=== PATIENT | male | born 1990 | race Caucasian/White ===

== ENCOUNTER 2017-01-26 20:46 | Emergency (ER) | payer OTHER ==
[2017-01-26 20:57] VITALS: BP 130/78; PULSE 82; RESP 18; TEMP 98
[2017-01-26] MEDS ORDERED: PROPARACAINE 0.5% OPHTH DROPS 15 ML BTL LEFT EYE STA (21:05)
--- NOTE | 2017-01-26 21:08 | ED ---
Eye Problem HPI - General Chief complaint: Eye Problems Stated complaint: Painful eye Time Seen by Provider: 01/26/17 21:03 Source: patient, RN notes reviewed Mode of arrival: ambulatory Limitations: no limitations - History of Present Illness Initial comments: 27-year-old male presents to the emergency Department chief complaint of left eye irritation. Patient states that he was opening superglue and since then he' s had some burning on and off to the eye. Patient states he contacted poison control and told to flush his eye and he states he continued to have the emergency room 3 thought that he should be seen. Patient denies any changes in vision any drainage from the eye. Patient states that she stated burning type sensation he was concerned. Patient states it is not currently having any other symptoms at this time.Patient denies any recent fever, chills, shortness of breath, chest pain, back pain, abdominal pain, nausea vomiting, numbness or tingling, dysuria or hematuria, constipation or diarrhea, headaches or visual changes, or any other current symptoms. - Related Data Previous Rx's Medication Instructions Recorded Erythromycin Ophth Oint [Romycin 1 applic LEFT EYE QID 3 Days 03/07/16 Ophth Oint] Allergies Allergy/AdvReac Type Severity Reaction Status Date / Time No Known Allergies Allergy Verified 01/26/17 20:57 Review of Systems ROS Statement: Those systems with pertinent positive or pertinent negative responses have been documented in the HPI. ROS Other: All systems not noted in ROS Statement are negative. Past Medical History Past Medical History: No Reported History History of Any Multi-Drug Resistant Organisms: None Reported Past Surgical History: Orthopedic Surgery Additional Past Surgical History / Comment(s): bilat ankle, Past Psychological History: No Psychological Hx Reported Smoking Status: Never smoker Past Alcohol Use History: Rare Past Drug Use History: None Reported General Exam Limitations: no limitations General appearance: alert, in no apparent distress Head exam: Present: atraumatic, normocephalic, normal inspection Eye exam: Present: normal appearance, PERRL, EOMI. Absent: scleral icterus, conjunctival injection, periorbital swelling ENT exam: Present: normal exam, mucous membranes moist Neck exam: Present: normal inspection. Absent: tenderness, meningismus, lymphadenopathy Respiratory exam: Present: normal lung sounds bilaterally. Absent: respiratory distress, wheezes, rales, rhonchi, stridor Cardiovascular Exam: Present: regular rate, normal rhythm, normal heart sounds. Absent: systolic murmur, diastolic murmur, rubs, gallop, clicks Neurological exam: Present: alert, oriented X3 Psychiatric exam: Present: normal affect, normal mood Skin exam: Present: warm, dry, intact, normal color. Absent: rash Course Vital Signs 01/26/17 20:55 Temperature 98.0 F Pulse Rate 82 Respiratory 18 Rate Blood Pressure 130/78 O2 Sat by Pulse 97 Oximetry - Reevaluation(s) Reevaluation #1: 01/26/17 21:39 patient's pain completely resolved with the proparacaine Medical Decision Making - Medical Decision Making 27-year-old male presents for left eye irritation.at this time patient underwent with flap examination does not show any corneal injury. We did give the patient dose of Bactrim and informed to follow-up with ophthalmology morning. We did discuss return parameters all patient's questions. He stated he understood and is in agreement plan. He will be discharged. Disposition Clinical Impression: Irritation of left eye Disposition: HOME SELF-CARE Condition: Stable Instructions: Eye Wash (Into the eye) Additional Instructions: Please use medication as discussed. Please follow up with family doctor if symptoms have not improved over the next two days. Please return to the emergency room if your symptoms increase or worsen or for any other concerns. Referrals: Cleveland Benavidez MD [Primary Care Provider] - 1-2 days Domingo Bean MD [STAFF PHYSICIAN] - 1-2 days Time of Disposition: 21:39
[2017-01-26] MEDS ORDERED: TOBRAMYCIN 0.3% OPHTH OINT 3.5 GM TUBE LEFT EYE STA (21:40)
== END 2017-01-26 21:57 | disposition home or self-care (01) ==
LOC: EC 20:46
DX: H57.8 Other specified disorders of eye and adnexa (principal)
CPT/HCPCS: 99283

== ENCOUNTER → 2017-02-03 | Outpatient (CLI) | payer OTHER ==
--- NOTE | 2017-02-03 11:16 | MR ---
EXAMINATION TYPE: MR lsluis wo con DATE OF EXAM: 02/03/2017 COMPARISON: NONE HISTORY: neck pain back pain TECHNIQUE: T1 and T2 axial and sagittal images of the lumbar spine are submitted. FINDINGS: There is no abnormal signal seen within the visualized spinal cord or paraspinal soft tissu es. At L1-2 there is hypertrophic change of the facets but no disc herniation or canal stenosis. No janet inal encroachment. At L2-3 there is no disc herniation or canal stenosis. No foraminal encroachment. At L3-4 there is mild disc desiccation and circumferential disc bulging. Hypertrophic change of the f acets. No Canal stenosis or foraminal encroachment. At L4-5 there is central broad-based disc herniation with moderate effacement of thecal sac and canal stenosis. Facet arthropathy and ligamentum flavum hypertrophy with mild bilateral foraminal encroach ment. At L5-S1 there is facet arthropathy. No Canal stenosis. Circumferential disc bulging with mild forami nal encroachment. IMPRESSION: 1. Degenerative disc disease L3-S1 with disc desiccation. 2. Central broad-based disc herniation L4-L5 with moderate effacement of thecal sac and canal stenosi s. Hypertrophic change of the facets and ligamentum flavum contribute to bilateral foraminal encroach ment. 3. Circumferential disc bulging L5-S1 with mild bilateral foraminal encroachment. EXAMINATION TYPE: MR lily wo con DATE OF EXAM: 02/03/2017 COMPARISON: NONE HISTORY: neck pain back pain TECHNIQUE: T1 sagittal and coronal, T2 sagittal, and gradient echo axial views of the cervical spine are submitted. FINDINGS: The cranial cervical junction is preserved. There is no abnormal signal seen within the sp inal cord or paraspinal soft tissues. At C2-3 there is no disc herniation or canal stenosis. No foraminal encroachment. At C3-4 there is there is no disc herniation or canal stenosis. Mild uncovertebral joint hypertrophy on the right. Very mild right-sided foraminal encroachment. At C4-5 there is no disc herniation or canal stenosis. No foraminal encroachment. At C5-6 there is disc herniation or canal stenosis. No foraminal encroachment. At C6-7 there is no disc herniation or canal stenosis. No foraminal encroachment. At C7-T1 there is no disc herniation or canal stenosis. No foraminal encroachment. IMPRESSION: 1. Mild uncovertebral joint hypertrophy C3-C4 on the right with very mild right-sided foraminal encr oachment but no evidence of disc herniation or canal stenosis at any of the visualized levels.
== END | disposition home or self-care (01) ==
LOC: RADMRIMAIN 09:44
PROVIDERS: ATTEND Nurse Practitioner Acute Care
DX: M48.06 Spinal stenosis, lumbar region (principal); M51.37 Other intervertebral disc degeneration, lumbosacral region; M51.27 Other intervertebral disc displacement, lumbosacral region; M54.2 Cervicalgia
CPT/HCPCS: 72141; 72148

== ENCOUNTER 2018-01-13 14:17 | Emergency (ER) | payer OTHER ==
[2018-01-13 14:45] VITALS: RESP 20
[2018-01-13] MEDS ORDERED: PROPARACAINE 0.5% OPHTH DROPS 15 ML BTL RIGHT EYE STA (14:52)
[2018-01-13] MEDS ORDERED: ERYTHROMYCIN 5 MG/GM OPHTH OINT 3.5 GM TUBE RIGHT EYE STA (15:43)
--- NOTE | 2018-01-13 15:43 | ED ---
Eye Problem HPI - General Chief complaint: Eye Problems Stated complaint: METAL SHAVING IN RT EYE NOT IHS Time Seen by Provider: 01/13/18 14:52 Source: patient, RN notes reviewed Mode of arrival: ambulatory Limitations: no limitations - History of Present Illness Initial comments: This is a 27-year-old male who presents to the emergency department with chief complaint of right eye foreign body. Patient states that approximately 2 and half hours ago he was grinding metal. He states that a small shaving became lodged in his right eye. He states that he did flush out the right eye and still felt a foreign body sensation on his drive over to the emergency department. Patient states that currently he no longer has foreign body sensation or irritation. He states he just wanted to be cautious. Denies any vision changes, blurred vision or significant eye pain. Does admit to minimal tearing. Denies any concerns for foreign body in the left eye. Patient does not wear contacts. Denies recent illnesses or infections. Denies fevers or chills, chest pain or shortness breath, abdominal pain, nausea or vomiting, headache or dizziness. - Related Data Home Medications Medication Instructions Recorded Confirmed No Known Home Medications 01/13/18 01/13/18 Allergies Allergy/AdvReac Type Severity Reaction Status Date / Time No Known Allergies Allergy Verified 01/13/18 14:45 Review of Systems ROS Statement: Those systems with pertinent positive or pertinent negative responses have been documented in the HPI. ROS Other: All systems not noted in ROS Statement are negative. Past Medical History Past Medical History: No Reported History History of Any Multi-Drug Resistant Organisms: None Reported Past Surgical History: Orthopedic Surgery Additional Past Surgical History / Comment(s): bilat ankle, Past Psychological History: No Psychological Hx Reported Smoking Status: Never smoker Past Alcohol Use History: Rare Past Drug Use History: None Reported General Exam - General Exam Comments Initial Comments: General: Awake and alert, well-developed; in no apparent distress. HEENT: Head atraumatic, normocephalic. Pupils are equal, round and reactive to light. Extraocular movements intact. Bilateral conjunctiva are non-injected. No evidence of foreign body within the right eye. No evidence of foreign body under superior or inferior eyelids. No abrasions or ulcerations noted on fluorescein staining. Oropharynx moist without erythema or exudate. Neck: Supple. Normal ROM. Cardiovascular: Regular rate and rhythm. No murmurs, rubs or gallops. Chest symmetrical. Respiratory: Lungs clear to auscultation bilaterally. No wheezes, rales or rhonchi. Normal respiratory effort with no use of accessory muscles. Musculoskeletal: Normal ROM, no tenderness bilateral upper and lower extremities. Ambulating normally. Skin: [place], warm and dry without rashes or lesions. Neurological: Alert and oriented x3. CN II-XII grossly intact. Speech is fluent and answers are appropriate. No focal neuro deficits. Psychiatric: Normal mood and affect. No overt signs of depression or anxiety noted. Limitations: no limitations Course Vital Signs 01/13/18 14:43 Temperature 98.2 F Pulse Rate 72 Respiratory 20 Rate Blood Pressure 121/69 O2 Sat by Pulse 100 Oximetry Medical Decision Making - Medical Decision Making This is a 27-year-old male who presents to the emergency department with chief complaint of foreign body within the right eye. Patient thought that he got a small metal shaving into his right eye approximately 2-1/2 hours ago. He did flush it out. Currently, patient denies any foreign body sensation and irritation. Conjunctivae non-injected. No evidence of foreign body within the eye or under eyelids. No abrasions or ulcerations noted on fluorescein staining. Extraocular movements are intact and pupils are equal round and reactive to light. Patient will be started on erythromycin ointment for prevention of any infection if there is a minor abrasion that I am unable to visualize. Vital signs are stable and patient is in no acute distress. He will be discharged home at this time. All questions answered. Disposition Clinical Impression: Eye foreign body Disposition: HOME SELF-CARE Condition: Good Instructions: Eye Foreign Body (ED), Erythromycin (Into the eye) Additional Instructions: Please apply a half inch ribbon of erythromycin to the affected eye every 6 hours for the next 5 days. Please follow up with primary care provider within 1 -2 days. Return to emergency department if symptoms should worsen or any concerns arise. Is patient prescribed a controlled substance at d/c from ED?: No Referrals: Cleveland Benavidez MD [Primary Care Provider] - 1-2 days Time of Disposition: 15:38
[2018-01-13 15:50] VITALS: BP 128/70; PULSE 64; TEMP 98.5
== END 2018-01-13 16:09 | disposition home or self-care (01) ==
LOC: EC 14:17
DX: T15.91XA Foreign body on external eye, part unspecified, right eye, initial encounter (principal)
CPT/HCPCS: 99283

== ENCOUNTER → 2018-04-30 | Outpatient (CLI) | payer OTHER ==
--- NOTE | 2018-04-30 15:59 | XR ---
EXAMINATION TYPE: XR ankle limited bilateral DATE OF EXAM: 04/30/2018 CLINICAL HISTORY: Ankle pain TECHNIQUE: Frontal, and lateral of the bilateral ankle are obtained. COMPARISON: None. FINDINGS: There is no acute fracture/dislocation evident in the bilateral ankle. The ankle mortise appears within normal limits. The overlying soft tissue appears unremarkable. Prominent bony density extending of the posterior margin of the talus bilaterally may be congenital. IMPRESSION: 1. There is no acute fracture or dislocation in the bilateral ankle. 2. There is a prominent bony protuberance extending off the posterior margin of the talus. Likely is congenital rather than representing osteochondroma. Follow-up bone scan could BE obtained as clinical ly warranted.
== END | disposition home or self-care (01) ==
LOC: RADXRMAIN 14:44
PROVIDERS: ATTEND Pediatrics
DX: R93.7 Abnormal findings on diagnostic imaging of other parts of musculoskeletal system (principal)

== ENCOUNTER → 2020-03-14 | Outpatient (CLI) | payer OTHER ==
--- NOTE | 2020-03-15 09:42 | XR ---
EXAMINATION TYPE: XR lumbosacral spine min 4V DATE OF EXAM: 03/14/2020 CLINICAL HISTORY: Sciatica pain down right leg. M54.31 TECHNIQUE: Frontal, lateral, and oblique images of the lumbar spine are obtained. COMPARISON: None FINDINGS: There are 5 lumbar type vertebral bodies identified. The lumbar spine shows satisfactory alignment without evidence of acute fracture or dislocation. Vertebral body heights and disk space he ights are within normal limits. No evidence of spondylolysis or spondylolisthesis. Mild facet arthrop athy L5-S1. The overlying soft tissue appears unremarkable. IMPRESSION: 1. No acute fracture or dislocation is seen in the lumbar spine. 2. Mild facet arthropathy at L5-S1.
== END | disposition home or self-care (01) ==
LOC: RAD 18:06
PROVIDERS: ATTEND Physician Assistant
DX: M47.897 Other spondylosis, lumbosacral region (principal)
CPT/HCPCS: 72110

== ENCOUNTER 2020-03-26 08:19 | Emergency (ER) | payer OTHER ==
[2020-03-26 08:34] VITALS: RESP 18
[2020-03-26] MEDS ORDERED: KETOROLAC 15 MG/ML 1 ML VIAL IM STA (09:00)
[2020-03-26] MEDS ORDERED: traMADol 50 MG STARTER PACK 3 TAB BTL PO STA (09:01)
--- NOTE | 2020-03-26 09:05 | ED ---
Back Pain HPI - General Chief Complaint: Back Pain/Injury Stated Complaint: back & leg pain Time Seen by Provider: 03/26/20 08:36 Source: patient Limitations: no limitations - History of Present Illness Initial Comments: Patient is a 30-year-old male presenting to emergency Department with complaints of right-sided low back pain with some radiation into his right leg. Patient states he has seen his PCP for this and they did start him on Neurontin which has not seemed to help. Patient states he also has muscle relaxers at home that he takes at nighttime and has been trying Aleve as well. Patient states he also has a prescription for physical therapy which he did go to the first appointment but did not like the physical therapist so he is switching to another facility. Patient states the last 2 days the pain has increased so he came to the ER for evaluation. He denies any injuries or falls. He denies any fever or chills. He denies any set up her seizure or urinary incontinence. He denies any lower back surgeries. He has no further complaints at this time. Upon arrival to the ER, his vital signs are stable. - Related Data Previous Rx's Medication Instructions Recorded predniSONE [Deltasone] 20 mg PO BID 5 Days #10 tab 03/26/20 Allergies Allergy/AdvReac Type Severity Reaction Status Date / Time No Known Allergies Allergy Verified 03/26/20 08:34 Review of Systems ROS Statement: Those systems with pertinent positive or pertinent negative responses have been documented in the HPI. ROS Other: All systems not noted in ROS Statement are negative. Past Medical History Past Medical History: No Reported History History of Any Multi-Drug Resistant Organisms: None Reported Past Surgical History: Orthopedic Surgery Additional Past Surgical History / Comment(s): bilat ankle, Past Psychological History: No Psychological Hx Reported Smoking Status: Never smoker Past Alcohol Use History: Rare Past Drug Use History: None Reported General Exam - General Exam Comments Initial Comments: GENERAL: Patient is well-developed and well-nourished. Patient is nontoxic and in no acute distress. HEAD: Atraumatic, normocephalic. EYES: Pupils equal round and reactive to light, extraocular movements intact, sclera anicteric, conjunctiva are normal. Eyelids were unremarkable. ENT: TMs normal, nares patent, oropharynx clear without exudates. Moist mucous membranes. NECK: Normal range of motion, supple without lymphadenopathy or JVD. LUNGS: Unlabored respirations. Breath sounds clear to auscultation bilaterally and equal. No wheezes rales or rhonchi. HEART: Regular rate and rhythm without murmurs, rubs or gallops. ABDOMEN: Soft, nontender, normoactive bowel sounds. No guarding, no rebound. No masses appreciated. : Deferred MUSCULOSKELETAL: Patient has some mild pain with palpation of the right SI area, increased with straight leg raise. Patient has 5 out of 5 strength of lower extremities bilaterally, sensation is equal and bilateral. Patient has strong glue contraction. No pitting or edema. No clubbing or cyanosis. NEUROLOGICAL: Patient is alert and oriented x 3. Motor and sensory are also intact. Cranial nerves II through XII grossly intact. Symmetrical smile. Normal speech, normal gait. PSYCH: Normal mood, normal affect. SKIN: Warm, Dry, normal turgor, no rashes or lesions noted. Limitations: no limitations Course Vital Signs 03/26/20 03/26/20 08:30 09:18 Temperature 98.4 F 98 F Pulse Rate 68 69 Respiratory 18 18 Rate Blood Pressure 122/69 114/79 O2 Sat by Pulse 99 97 Oximetry Medical Decision Making - Medical Decision Making Patient is a 30-year-old male here for right-sided low back pain as well as some mild sciatica. His exam is unremarkable, no neural deficits. Patient is already taking Neurontin. I discussed with patient that we can give him Toradol today as well as started on a small dose of steroids for the inflammation. Patient is also requesting some sort of pain medication. I will give him a starter pack of tramadol. Patient is agreement with this plan of care. He will continue with his physical therapy and follow up with his PCP. Return parameters were discussed with the patient and he verbalized understanding. Case discussed with Dr. Bowles. Disposition Clinical Impression: Right-sided low back pain with right-sided sciatica Disposition: HOME SELF-CARE Condition: Stable Instructions (If sedation given, give patient instructions): Sciatica (ED) Additional Instructions: Please return to the Emergency Department if symptoms worsen or any other concerns. Take medication as prescribed. Continue with physical therapy as discussed. Use eye ice and/or heat on the area, gentle stretching. Follow-up with PCP. Prescriptions: predniSONE [Deltasone] 20 mg PO BID 5 Days #10 tab Is patient prescribed a controlled substance at d/c from ED?: No Referrals: Cleveland Benavidez MD [Primary Care Provider] - 1-2 days
[2020-03-26 09:20] VITALS: BP 114/79; PULSE 69; TEMP 98
== END 2020-03-26 09:18 | disposition home or self-care (01) ==
LOC: EC 08:19
DX: M54.41 Lumbago with sciatica, right side (principal); Z98.890 Other specified postprocedural states
CPT/HCPCS: 99283; 96372; J1885

== ENCOUNTER 2020-09-22 12:22 | Emergency (ER) | payer OTHER ==
[2020-09-22 12:26] VITALS: BP 117/67; PULSE 79; RESP 18; TEMP 97.4
[2020-09-22] MEDS ORDERED: KETOROLAC 15 MG/ML 1 ML VIAL IM STA (12:41)
--- NOTE | 2020-09-22 12:58 | ED ---
General Adult HPI - General Chief complaint: Back Pain/Injury Stated complaint: back pain Time Seen by Provider: 09/22/20 12:30 Source: patient, RN notes reviewed, old records reviewed Mode of arrival: ambulatory Limitations: no limitations - History of Present Illness Initial comments: 30-year-old male with chronic back pain presenting for evaluation of worsening pain. Patient has been seen by the neurology and spine center locally. He is currently on naproxen and Whick. He states he had an MRI about 6 months ago which showed some herniated disks. He states that he did have some numbness and tingling into his right leg which has improved over the past several months. He denies weakness. Patient denies any new trauma. Denies fever or chills. Denies any constitutional symptoms. No dysuria or bladder or bowel incontinence. - Related Data Previous Rx's Medication Instructions Recorded predniSONE [Deltasone] 20 mg PO BID 5 Days #10 tab 03/26/20 Ibuprofen [Motrin] 600 mg PO Q8HR PRN #24 tab 09/22/20 Allergies Allergy/AdvReac Type Severity Reaction Status Date / Time No Known Allergies Allergy Verified 09/22/20 12:25 Review of Systems ROS Statement: Those systems with pertinent positive or pertinent negative responses have been documented in the HPI. ROS Other: All systems not noted in ROS Statement are negative. Past Medical History Past Medical History: No Reported History Additional Past Medical History / Comment(s): herniated disc in lower back. History of Any Multi-Drug Resistant Organisms: None Reported Past Surgical History: Orthopedic Surgery Additional Past Surgical History / Comment(s): bilat ankle, Past Psychological History: No Psychological Hx Reported Smoking Status: Never smoker Past Alcohol Use History: Rare Past Drug Use History: None Reported General Exam Limitations: no limitations General appearance: alert, in no apparent distress Head exam: Present: atraumatic, normocephalic Eye exam: Present: normal appearance, PERRL ENT exam: Present: normal exam Neck exam: Present: normal inspection. Absent: tenderness, meningismus Respiratory exam: Present: normal lung sounds bilaterally. Absent: respiratory distress Cardiovascular Exam: Present: regular rate, normal rhythm GI/Abdominal exam: Present: soft. Absent: distended, tenderness, guarding Extremities exam: Present: normal inspection, full ROM, normal capillary refill. Absent: tenderness, pedal edema, joint swelling Back exam: Present: normal inspection, paraspinal tenderness Neurological exam: Present: alert, oriented X3, CN II-XII intact. Absent: motor sensory deficit Psychiatric exam: Present: normal affect, normal mood Skin exam: Present: warm, dry, intact. Absent: cyanosis, diaphoretic Course Vital Signs 09/22/20 12:23 Temperature 97.4 F L Pulse Rate 79 Respiratory 18 Rate Blood Pressure 117/67 O2 Sat by Pulse 97 Oximetry Medical Decision Making - Medical Decision Making 30-year-old with chronic low back pain, requesting Toradol shot for symptom control. No alarming features on history or physical exam. Patient has good follow-up as an outpatient. He will continue to follow with his primary care physician and the neurology Center. He will return with worsening or changing symptoms. Disposition Clinical Impression: Strain of lumbar region, Herniated lumbar intervertebral disc Disposition: HOME SELF-CARE Condition: Good Instructions (If sedation given, give patient instructions): Acute Low Back Pain (ED) Additional Instructions: Discontinue naproxen, start Motrin, follow with your low back specialist. Prescriptions: Ibuprofen [Motrin] 600 mg PO Q8HR PRN #24 tab PRN Reason: Pain Is patient prescribed a controlled substance at d/c from ED?: No Referrals: Cleveland Benavidez MD [Primary Care Provider] - 1-2 days Time of Disposition: 13:02
== END 2020-09-22 13:07 | disposition home or self-care (01) ==
LOC: EC 12:22
DX: M51.26 Other intervertebral disc displacement, lumbar region (principal); S39.012A Strain of muscle, fascia and tendon of lower back, initial encounter; X58.XXXA Exposure to other specified factors, initial encounter
CPT/HCPCS: 99283; 96372; J1885

== ENCOUNTER → 2020-11-08 | Outpatient (CLI) | payer OTHER ==
[2020-11-08 19:15] LABS: Basophils # (A) 0.02 X 10*3/uL (0.00-0.10); Basophils % (A) 0.2 %; Eosinophils # (A) 0.16 X 10*3/uL (0.04-0.35); Eosinophils % (A) 1.9 %; HGB 13.5 g/dL (13.0-17.0); Lymphocytes # (A) 1.42 X 10*3/uL (0.90-5.00); Lymphocytes % (A) 16.9 %; MCH 29.9 pg (27.0-32.0); MCHC 32.9 g/dL (32.0-37.0); MCV 90.9 fL (80.0-97.0); Mean Platelet Volume 9.9 fL (9.5-12.2); Monocytes # (A) 0.65 X 10*3/uL (0.20-1.00); Monocytes % (A) 7.7 %; Neutrophils # (A) 6.12 X 10*3/uL (1.80-7.70); Neutrophils % (A) 73.1 %; Platelet Count 198 X 10*3/uL (140-440); RBC 4.51 X 10*6/uL (4.40-5.60); WBC 8.39 X 10*3/uL (4.50-10.00)
[2020-11-09 01:23] LABS: African American GFR (CKD) 132.4 (60.0-200.0); Albumin 4.5 g/dL (3.80-4.90); Albumin/Globulin Ratio 2.65 (1.60-3.17); Anion Gap 5.3 mmol/L (4.00-12.00); BUN/Creat Ratio 18.89 Ratio (12.00-20.00); Calcium 9.2 mg/dL (8.7-10.3); Carbon Dioxide 28.7 mmol/L (21.6-31.8); Globulin 1.7 g/dL (1.6-3.3); Non-African American GFR(CKD) 114.2 (60.0-200.0); Potassium 4.8 mmol/L (3.5-5.5); Total Bilirubin 0.4 mg/dL (0.2-1.2); Total Protein 6.2 g/dL (6.2-8.2)
== END | disposition home or self-care (01) ==
LOC: LABWHC1 11:27
PROVIDERS: ATTEND Nurse Practitioner Acute Care
DX: E55.9 Vitamin D deficiency, unspecified (principal); E05.90 Thyrotoxicosis, unspecified without thyrotoxic crisis or storm
CPT/HCPCS: 36415; 80053; 82306; 82607; 84207; 84439; 84443; 84481; 85025

== ENCOUNTER 2020-12-14 12:37 | Emergency (ER) | payer OTHER ==
[2020-12-14 12:41] VITALS: RESP 18; TEMP 98
--- NOTE | 2020-12-14 13:18 | ED ---
General Adult HPI - General Chief complaint: Recheck/Abnormal Lab/Rx Stated complaint: Medication reaction Time Seen by Provider: 12/14/20 12:52 Source: patient, RN notes reviewed Mode of arrival: ambulatory Limitations: no limitations - History of Present Illness Initial comments: Patient is a pleasant 30-year-old male presenting to the emergency Department with complaints of concerns regarding withdrawal from Lyrica. Patient states a few days ago he stopped taking this completely. Patient states he was on 150 mg 3 times daily. Patient was off the medication for 3 days. Patient spoke with his doctor and restarted 1 pill per day starting yesterday. Patient is feeling lightheaded and some difficulty with concentrating. Patient has mild nausea. No suicidal thoughts. - Related Data Previous Rx's Medication Instructions Recorded predniSONE [Deltasone] 20 mg PO BID 5 Days #10 tab 03/26/20 Ibuprofen [Motrin] 600 mg PO Q8HR PRN #24 tab 09/22/20 Allergies Allergy/AdvReac Type Severity Reaction Status Date / Time No Known Allergies Allergy Verified 12/14/20 12:41 Review of Systems ROS Statement: Those systems with pertinent positive or pertinent negative responses have been documented in the HPI. ROS Other: All systems not noted in ROS Statement are negative. Constitutional: Denies: fever Eyes: Denies: eye pain ENT: Denies: ear pain Respiratory: Denies: cough Cardiovascular: Denies: chest pain Endocrine: Denies: fatigue Gastrointestinal: Denies: abdominal pain Genitourinary: Denies: dysuria Musculoskeletal: Denies: back pain Skin: Denies: rash Neurological: Denies: headache, weakness, confusion Psychiatric: Denies: suicidal thoughts Past Medical History Past Medical History: No Reported History Additional Past Medical History / Comment(s): herniated disc in lower back. History of Any Multi-Drug Resistant Organisms: None Reported Past Surgical History: Orthopedic Surgery Additional Past Surgical History / Comment(s): bilat ankle, Past Psychological History: No Psychological Hx Reported Smoking Status: Never smoker Past Alcohol Use History: Rare Past Drug Use History: None Reported General Exam Limitations: no limitations General appearance: alert, in no apparent distress Head exam: Present: normocephalic Eye exam: Present: normal appearance, PERRL Neck exam: Present: normal inspection Respiratory exam: Present: normal lung sounds bilaterally Cardiovascular Exam: Present: regular rate, normal rhythm GI/Abdominal exam: Present: soft. Absent: tenderness Extremities exam: Present: normal inspection Neurological exam: Present: alert. Absent: motor sensory deficit Psychiatric exam: Present: normal affect, normal mood Skin exam: Present: normal color Course Vital Signs 12/14/20 12:38 Temperature 98.0 F Pulse Rate 73 Respiratory 18 Rate Blood Pressure 118/72 O2 Sat by Pulse 100 Oximetry Medical Decision Making - Medical Decision Making Patient agreeable with plan to increase Lyrica dose to twice daily starting today including tomorr and Thursday. Start with one daily on Thursday for the 5 days and every other day for 5 days following that. Patient is to follow-up with his primary care physician next week ago for plan. Disposition Clinical Impression: Encounter for medication adjustment Disposition: HOME SELF-CARE Condition: Stable Instructions (If sedation given, give patient instructions): Pregabalin (By mouth) Additional Instructions: Starting today and including tomorrow (Thursday)and Thursday dose twice daily. Starting on Thursday decreased dose down to 1 tablet daily for the next 5 days. After this adjust dose to 1 tablet every other day for 5 days. Please do follow-up through primary care physician in the beginning of the week to reevaluate and go over the planned. Return for worsening symptoms, thoughts of self-harm, or any other concerns. Is patient prescribed a controlled substance at d/c from ED?: No Referrals: Wilner Gustafson MD [Primary Care Provider] - 1-2 days Time of Disposition: 13:18
[2020-12-14 13:36] VITALS: BP 117/65; PULSE 68
== END 2020-12-14 13:45 | disposition home or self-care (01) ==
LOC: EC 12:37
DX: R11.0 Nausea (principal); Z51.89 Encounter for other specified aftercare
CPT/HCPCS: 99281

== ENCOUNTER → 2023-01-06 | Outpatient (CLI) | payer OTHER ==
--- NOTE | 2023-01-06 14:05 | XR ---
EXAMINATION TYPE: XR hand limited LT DATE OF EXAM: 01/06/2023 COMPARISON: 10/17/2011 HISTORY: Pain TECHNIQUE: Three views are submitted. FINDINGS: The osseous structures are intact. The joint spaces are preserved and there is no acute fracture or dislocation.Chronic deformity of the distal ulna. There is a small lucency involving the scaphoid. Fi ndings compatible with benign cyst. IMPRESSION: 1. No definite acute fracture or dislocation if symptoms persist, follow-up study in 7 to 10 days wo uld be suggested 2. Remote fracture distal ulna. Benign-appearing cyst scaphoid. If symptoms persist consider follow-u p MRI.
--- NOTE | 2023-01-06 15:24 | XR ---
EXAMINATION TYPE: XR wrist complete LT DATE OF EXAM: 01/06/2023 COMPARISON: NONE HISTORY: Pain TECHNIQUE: Four views submitted. FINDINGS: The osseous structures are intact. The joint spaces are preserved and there is no acute fracture or dislocation. Deformity distal left ulna suggestive of remote trauma. Benign-appearing cyst scaphoid. IMPRESSION: 1. No definite acute fracture or dislocation if symptoms persist, follow-up study in 7 to 10 days wo uld be suggested
== END | disposition home or self-care (01) ==
LOC: RADXRMAIN 13:29
PROVIDERS: ATTEND Physician Assistant
DX: S52.602A Unspecified fracture of lower end of left ulna, initial encounter for closed fracture (principal); M85.642 Other cyst of bone, left hand; M25.532 Pain in left wrist